=== PATIENT | male | born 1975 | race Caucasian/White ===

== ENCOUNTER → 2017-08-04 11:14 | Outpatient (REF) | payer OTHER, SELFPAY ==
[2017-08-04 13:47] LABS: Alanine Aminotransferase 399 U/L (12-78); Albumin Level 3.9 gm/dL (3.4-5.0); Albumin/Globulin Ratio 1.2 (1.1-1.8); Alkaline Phosphatase 47 U/L (46-116); Anion Gap 11.2 mEq/L (5-15); Aspartate Amino Transferase 133 U/L (15-37); Bilirubin,Total 0.4 mg/dL (0.2-1.0); Blood Urea Nitrogen 12 mg/dL (7-18); Calcium 9.4 mg/dL (8.5-10.1); Carbon Dioxide 29 mmol/L (21.0-32.0); Chloride 104 mmol/L (98-107); Estimated Glomerular Filt Rate 107 ml/min (>60); GFR (African American) 130 ML/MIN (>60); Globulin 3.3 gm/dl (1.3-3.2); Glucose 87 mg/dL (74-106); Potassium 4.2 mmoL/L (3.5-5.1); Sodium 140 mmol/L (136-145); Total Protein,Serum 7.2 gm/dL (6.4-8.2)
[2017-08-04 14:21] LABS: Monoscreen (Rapid) Negative (Negative)
[2017-08-05 08:20] LABS: Hep A Ab, IgM Negative (Negative); Hepatitis B Core Antibody IgM Negative (Negative); Hepatitis B Surface Antigen Negative (Negative)
[2017-08-05 17:00] LABS: EBV Ab VCA, IgM <36.0 U/mL (0.0-35.9)
[2017-08-05 17:01] LABS: Hepatitis C Antibody <0.1 s/co ratio (0.0-0.9)
[2017-08-10 06:15] LABS: CMV PCR Negative (Negative)
== END ==
LOC: LAB.CARL 11:14
PROVIDERS: Visit Provider Internal Medicine Adolescent Medicine
DX: R74.8 Abnormal levels of other serum enzymes (principal)
CPT/HCPCS: 80053; 80074; 86318; 86665

== ENCOUNTER → 2021-03-01 20:01 | Outpatient (CLI) | payer OTHER, SELFPAY | PROVIDERS: Visit Provider Nurse Practitioner Family | DX: U07.1 COVID-19 (principal) | CPT/HCPCS: C9803; U0003; U0005 ==

== ENCOUNTER 2024-06-12 10:57 | Day surgery (SDC) | payer BC, SELFPAY ==
[2024-06-10 16:20] VITALS: BMI 28.2
[2024-06-12 12:23] VITALS: BP 135/87; PULSE 52; RESP 16; TEMP 36.6; O2SAT 99
[2024-06-12] MEDS: LACTATED RINGERS 1000ML 1,000 ML 50 ML IV (12:30)
--- NOTE | 2024-06-12 12:38 | EXP.ANES.CKL ---
[facility] Disclaimer: The information contained in this section may have been updated after the patient was seen, as this information can be updated by other users. Medical History No significant past medical history Surgical History History of cholecystectomy Family History Other No significant family history Social History Smoking Status: Never smoker alcohol intake: current alcohol intake frequency: a few times a week substance use type: denies use current occupational status: employed Travel in the last 8 weeks: None Have you lived/traveled outside US in past 30 days?: No Contact w/someone who lives/traveled outside US past 30 days?: No Exposure to someone with infectious disease in past 14 days?: No Do you have a fever (greater than 100.4 F or 38 C)?: No Have you tested positive for COVID-19: No Exposed to someone with COVID-19 in past 14 days?: No Do you have a sore throat?: No Do you have a cough?: No Do you have any weakness?: No Do you have any diarrhea?: No Are you experiencing any unusual bleeding?: No Do you have any muscle aches/pain?: No Do you have any abdominal pain?: No Are you experiencing loss of taste or smell?: No [facility] Anesthesia Checklist Patient Identification Patient Identification: Arm Band Structural Data Admitted From: Home Planned Operative Procedure/s: Colonoscopy Consent for Planned Operative Procedure(s) Verified: Yes Verified Documents: Surgical Consent and History and Physical NPO Status Verified Time NPO: 05:00 (finished prep) Additional verifications Anesthesia Reactions: No Airway Assessment Mallampati Score:: Class II C-Spine Mobility Assessed: Yes TMJ Mobility Assessed: Yes Dentition: Good Dentition Neurological Assessment Level of Consciousness: Awake, Alert and Appropriate Anesthesia Plan Anesthesia Risk discussed: Yes Anesthesia Plan: Verified ASA Class: II Anesthesia Type: MAC
[2024-06-12 13:07] VITALS: O2SAT 100
--- NOTE | 2024-06-12 13:18 | P.HP_ITS ---
History of Present Illness *Admission Date: 06/12/24 *Reason for visit:: Screening for colon cancer *History of present illness: Mr. Dunn is a 49-year-old gentleman who is here for screening colonoscopy. The examination is deemed medically necessary for screening colonoscopy. The patient has been seen, interviewed and examined prior to the procedure by both myself and the anesthesia provider. [facility] Disclaimer: The information contained in this section may have been updated after the patient was seen, as this information can be updated by other users. Medical History (Updated 06/12/24 @ 13:18 by Momo oJseph II, MD) No significant past medical history Surgical History History of cholecystectomy Family History Other No significant family history Social History Smoking Status: Never smoker alcohol intake: current alcohol intake frequency: a few times a week substance use type: denies use current occupational status: employed Travel in the last 8 weeks: None Have you lived/traveled outside US in past 30 days?: No Contact w/someone who lives/traveled outside US past 30 days?: No Exposure to someone with infectious disease in past 14 days?: No Do you have a fever (greater than 100.4 F or 38 C)?: No Have you tested positive for COVID-19: No Exposed to someone with COVID-19 in past 14 days?: No Do you have a sore throat?: No Do you have a cough?: No Do you have any weakness?: No Do you have any diarrhea?: No Are you experiencing any unusual bleeding?: No Do you have any muscle aches/pain?: No Do you have any abdominal pain?: No Are you experiencing loss of taste or smell?: No Other Medical History Have you received the Pneumonia Vaccine: No Review of Systems Review of Systems Review of systems (narrative): Negative *Cardiovascular Comments: Negative *Gastrointestinal Comments: Negative *Genitourinary Comments: Negative *Musculoskeletal Comments: Negative *Neurologic Comments: Negative Meds Home Medications and Allergies Home Medications ?Medication ?Instructions ?Recorded ?Confirmed ?Type No Known Home Medications 06/12/24 06/12/24 History New Prescriptions to Start Prescriptions: Allergies Allergy/AdvReac Type Severity Reaction Status Date / Time No Known Allergies Allergy Verified 06/10/24 16:19 Exam Data for Last 24 hours Vital signs and Labs for Last 24 Hours: Temp Pulse Resp BP Pulse Ox O2 Del Method O2 Flow Rate 97.9 F 52 L 16 135/87 99 Nasal Cannula 5 06/12/24 12:23 06/12/24 12:23 06/12/24 12:23 06/12/24 12:23 06/12/24 12:23 06/12/24 13:07 06/12/24 13:07 I & O for Last 24 hours: Intake & Output 06/09/24 06/10/24 06/11/24 06/12/24 23:59 23:59 23:59 23:59 Weight 175 lb *Routine HEENT Exam Head: Present normocephalic Eye: Present EOMI and PERRL ENT: Present mucous membranes moist *Routine Neck Exam Neck: Present supple *Routine Respiratory Exam Respiratory: Present CTA bilaterally *Routine Cardiovascular Exam Cardiovascular: Present RRR *Routine Abdominal Exam Abdominal: Present soft and normoactive bowel sounds; Absent tenderness *Routine Rectal Exam Rectal:: deferred *Routine Genitalia Exam Genitalia:: deferred *Routine Extremities Exam Extremities: Absent cyanosis, clubbing or edema *Routine Skin Exam Skin: Present warm; Absent rash *Routine Neurological Exam Neurological: Present alert and oriented X3 Assessment and Plan *Assessment and plan (1) Screening for colon cancer: Status: Acute Category: Medical Code(s): Z12.11 - Encounter for screening for malignant neoplasm of colon Plan A/P: 1. Screening for colon cancer is the preprocedural diagnosis. The patient will be anesthetized/sedated using MAC sedation. The patient has been seen and examined. Cardiac and lung assessment prior to the examination is stable. Proceed with planned screening colonoscopy.
--- NOTE | 2024-06-12 13:19 | HMH.PROCNOTE ---
[facility] Procedure Note Date: 06/12/24 Time: 13:36 Procedure Note:: Colonoscopy Procedure Report: Colonoscopy with cold snare polypectomy Endoscopist: Momo Joseph II, MD Referring physician: Traci Carver MD, [address] [facility] [address], [place] [address] Date of Procedure: June 12, 2024 Equipment: Olympus 190 variable stiffness pediatric colonoscope Sedation: MAC sedation Indication: Mr. Dunn is a 49-year-old gentleman who is here for initial screening colonoscopy. He reports no change in his bowel habits, rectal bleeding or family history of colon cancer. He did have a diagnostic colonoscopy 15 years ago when he had an anal fissure. He was sent for some persistent right lower quadrant abdominal wall pain. The patient did have moderately elevated liver chemistries in the past and consumes about 10 beers daily. Procedure: Prior to the procedure, a history and physical exam was performed, and patient's medications and allergies were reviewed. The risks, benefits and alternatives of the sedation and procedure were discussed with the patient. All questions were answered and informed consent was obtained. The patient was brought to the procedure room. Patient identification and proposed procedure were verified by the physician and the nurse. The patient was placed in a left lateral decubitus position and the scope was passed under direct vision. Throughout the procedure, the patient's blood pressure, pulse, and oxygen saturations were monitored continuously. The colonoscopy was accomplished without difficulty. The patient tolerated the procedure well. Findings: On digital rectal examination there was normal rectal tone. There were no external hemorrhoids. The colonoscope was introduced through the anal canal to the rectum and advanced to the cecum. The ileocecal valve and appendiceal orifice were identified. The scope was advanced a short distance into the ileum which appeared grossly normal. The scope was then withdrawn into the colon. There were 2 polyps (cecum x 1 (5 mm) and ascending x 1 (4 mm)). Both of these were removed via cold snare polypectomy. The remaining cecum, ascending, transverse, descending, sigmoid and rectum were grossly normal. There were a few scattered diverticuli in the sigmoid colon. There were no other mucosal abnormalities identified. Upon retroflexion within the rectum there were grade 2 internal hemorrhoids. The preparation was excellent throughout with [place] Preparation Score of 9. The cecal time was 12 minutes. Impression: 1. Diminutive colonic polyps x 2 2. Mild sigmoid diverticulosis 3. Grade 2 internal hemorrhoids Plan: I will follow-up the polyp histology and recommend repeat surveillance colonoscopy again in 7 years if the polyps are adenomatous. I would encourage psyllium fiber supplementation on a maintenance basis. I will check liver chemistries and FibroSure while here today.
[2024-06-12 13:40] VITALS: BP 102/73; PULSE 74; RESP 19; TEMP 36.4; O2SAT 97
[2024-06-12 13:50] VITALS: BP 110/72; PULSE 53; RESP 19; O2SAT 98
[2024-06-12 14:00] VITALS: BP 95/75; PULSE 55; RESP 19; O2SAT 99
[2024-06-12 14:10] VITALS: BP 120/78; PULSE 58; RESP 19; O2SAT 96
[2024-06-12 14:45] LABS: Chloride 104 mmol/L (98-107)
[2024-06-12 14:46] LABS: Albumin Level 4.9 g/dl (3.5-5.0); Potassium 4.7 mmoL/L (3.5-5.1); Sodium 141 mmol/L (136-145)
[2024-06-12 14:48] LABS: Alanine Aminotransferase 49 U/L (12-78); Anion Gap 10.7 mEq/L (5-15); Aspartate Amino Transferase 49 U/L (17-59); Blood Urea Nitrogen 9 mg/dl (9-20); Carbon Dioxide 31 mmol/L (22.0-30.0); Creatinine Clearance Estimated 128 mL/min (50-200); Estimated Glomerular Filt Rate 104 ml/min (>60); GFR (African American) 125 ML/MIN (>60)
[2024-06-12 14:49] LABS: Albumin/Globulin Ratio 1.7 (1.1-1.8); Alkaline Phosphatase 37 U/L (38-126); Bilirubin,Total 1.3 mg/dl (0.2-1.3); Calcium 9.8 mg/dl (8.4-10.2); Globulin 2.9 g/dL (1.3-3.2); Glucose 109 mg/dl (74-100); Total Protein,Serum 7.8 g/dl (6.3-8.2)
[2024-06-12 15:24] LABS: Ferritin 159 ng/ml (17.9-464)
[2024-06-15 04:11] LABS: ALT (SGPT) P5P 43 IU/L (0-55); AST (SGOT) P5P 48 IU/L (0-40); Alpha 2-Macroglobulins, Qn 284 mg/dL (110-276); Apolipoprotein A-1 220 mg/dL (101-178); Bilirubin, Total 0.9 mg/dL (0.0-1.2); Cholesterol, Total 239 mg/dL (100-199); GGT 49 IU/L (0-65); Glucose 105 mg/dL (70-99); Haptoglobin 124 mg/dL (23-355); Steatosis Score 0.26 (0.00-0.40); Triglycerides 159 mg/dL (0-149)
== END 2024-06-12 14:15 | disposition home or self-care (01) ==
PROVIDERS: PCP Family Medicine; Visit Provider Internal Medicine Gastroenterology
PROC: 0DJD8ZZ Inspection of Lower Intestinal Tract, Via Natural or Artificial Opening Endoscopic (ICD-10-PCS; CPT 45378; principal; 2024-06-12 12:30)
DX: D12.0 Benign neoplasm of cecum (principal); K63.5 Polyp of colon; K57.30 Diverticulosis of large intestine without perforation or abscess without bleeding; K64.1 Second degree hemorrhoids; Z12.11 Encounter for screening for malignant neoplasm of colon
CPT/HCPCS: 45385; 36415; 80053; 82172; 82247; 82465; 82728; 82947; 82977; 83010; 83883; 84450; 84460; 84478; J7120

== ENCOUNTER 2024-07-01 07:58 | Outpatient (CLI) | payer BC, SELFPAY ==
--- NOTE | 2024-07-01 08:00 | MR_ITS ---
FINAL REPORT CLINICAL HISTORY: hernia eval, near umbilicus, marked with a marker FINDINGS: Multiplanar MR imaging of the abdomen was performed without and with contrast. Images of the liver reveal no evidence of mass. There is no evidence of biliary ductal dilatation. Gallbladder is not visualized and likely surgically absent. There are benign-appearing cysts in the anterior right kidney measuring up to 1.3 cm. Moderate stool is seen throughout the colon. There is a skin marker overlying the right anterior pelvic wall. No underlying hernia is seen. There is no subcutaneous mass or fluid collection. No abnormal contrast enhancement is seen on the postcontrast images. IMPRESSION: Moderate stool. No underlying hernia, subcutaneous mass or fluid collection seen. Reviewed, Interpreted and Dictated by Jay Gould MD Transcribed by Tiera Vega Authenticated and . [facility]
[2024-07-01] MEDS: SODIUM CHLORIDE 0.9% 10ML SYR (RAD ONLY) 10 ML IV (09:05)
[2024-07-01] MEDS: 0.9 % SODIUM CHLORIDE 50 ML VIAL IV (09:05)
[2024-07-01] MEDS: GADOTERIDOL INJ 20ML SYRINGE 16 ML IV (09:05)
== END 2024-07-01 23:59 | disposition home or self-care (01) ==
LOC: RAD 07:58
PROVIDERS: PCP Family Medicine; Visit Provider Surgery
DX: R10.9 Unspecified abdominal pain (principal)
CPT/HCPCS: 74183; A9576

== ENCOUNTER 2024-07-17 12:32 | Outpatient (CLI) | payer BC, SELFPAY ==
--- NOTE | 2024-07-17 12:57 | ECG_ITS ---
APPROVED REPORT Exam: Resting ECG HR:57 bpm ECG Measurements Heart Rate 57 AXES WI 124 P 30 QRSd 86 QRS 53 QT 384 T 45 QTc 379 Conclusion SINUS BRADYCARDIA BORDERLINE ECG UNCONFIRMED REPORT Electronically signed by : Trent Sousa MD 07/18/2024 07:30:14
== END 2024-07-17 23:59 | disposition home or self-care (01) ==
LOC: PREOP 12:33
PROVIDERS: PCP Family Medicine; Visit Provider Surgery
DX: R94.31 Abnormal electrocardiogram [ECG] [EKG]; Z01.810 Encounter for preprocedural cardiovascular examination; R00.1 Bradycardia, unspecified
CPT/HCPCS: 93005

== ENCOUNTER 2024-07-22 07:53 | Day surgery (SDC) | payer BC, SELFPAY ==
[2024-07-17 13:26] LABS: MANUAL DIFFERENTIAL MANUAL DIFFERENTIAL (MANUAL DIFF)
[2024-07-17 13:28] LABS: Basophils % 0.6 % (0.1-2.0); Eosinophils # 0.1 Kmm3 (0.0-0.4); Eosinophils % 2.5 % (0.1-12.0); Hematocrit 43.8 % (42.0-52.0); Lymphocytes # 1.6 K/mm3 (0.7-4.5); Lymphocytes % 29.7 % (10-50); Mean Corpuscular HGB Conc 34.2 g/dL (31.8-35.4); Mean Corpuscular Hemoglobin 32.3 pg (27.0-31.2); Mean Corpuscular Volume 94.4 fl (80-94); Mean Platelet Volume 10.5 fl (7.4-10.4); Monocytes # 0.5 K/mm3 (0.1-1.0); Monocytes % 9.1 % (1.7-9.3); Neutrophils # 3.1 K/mm3 (1.8-7.8); Neutrophils % 57.7 % (37.0-80.0); Platelet Count 194 K/mm3 (142-424); Red Blood Count 4.64 M/mm3 (4.60-6.20); Red Cell Distribution Width 12.4 % (11.5-17.5); White Blood Count 5.3 K/mm3 (4.8-10.8)
[2024-07-17 13:38] VITALS: BMI 28.2
[2024-07-17 13:42] LABS: Albumin Level 4.8 g/dl (3.5-5.0); Chloride 109 mmol/L (98-107); Sodium 144 mmol/L (136-145)
[2024-07-17 13:43] LABS: Potassium 4.4 mmoL/L (3.5-5.1)
[2024-07-17 13:45] LABS: Alanine Aminotransferase 38 U/L (12-78); Albumin/Globulin Ratio 1.7 (1.1-1.8); Alkaline Phosphatase 34 U/L (38-126); Anion Gap 10.4 mEq/L (5-15); Aspartate Amino Transferase 42 U/L (17-59); Bilirubin,Total 0.6 mg/dl (0.2-1.3); Blood Urea Nitrogen 9 mg/dl (9-20); Carbon Dioxide 29 mmol/L (22.0-30.0); Creatinine Clearance Estimated 171 mL/min (50-200); Estimated Glomerular Filt Rate 144 ml/min (>60); GFR (African American) 175 ML/MIN (>60); Globulin 2.9 g/dL (1.3-3.2); Total Protein,Serum 7.7 g/dl (6.3-8.2)
[2024-07-17 13:46] LABS: Calcium 9.6 mg/dl (8.4-10.2); Glucose 100 mg/dl (74-100)
[2024-07-17 18:23] LABS: Lymphocytes % 35 % (10-50); Neutrophils % 52 % (42-76); Total Cells Counted 100
[2024-07-17 18:24] LABS: Eosinophils % 6 % (0-3); Monocytes % 7 % (2-9)
[2024-07-17 18:25] LABS: Platelet Estimate Normal; RBC Morphology Normal
[2024-07-22] VITALS (9 sets, daily range): BP systolic 104–155; BP diastolic 63–92; PULSE 59–79; RESP 16–26; TEMP 36.1–36.4; O2SAT 94–98
--- NOTE | 2024-07-22 08:58 | P.PNANES_ITS ---
[facility] Disclaimer: The information contained in this section may have been updated after the patient was seen, as this information can be updated by other users. Medical History No significant past medical history Surgical History H/O vasectomy H/O colonoscopy History of cholecystectomy Family History Other No significant family history Social History Smoking Status: Never smoker alcohol intake: current alcohol intake frequency: a few times a week substance use type: denies use current occupational status: employed Travel in the last 8 weeks?: None Have you lived/traveled outside US in past 30 days?: No Contact w/someone who lives/traveled outside US past 30 days?: No Exposure to someone with infectious disease in past 14 days?: No Do you have a fever (greater than 100.4 F or 38 C)?: No Have you tested positive for COVID-19?: No Exposed to someone with COVID-19 in past 14 days?: No Do you have a sore throat?: No Do you have a cough?: No Do you have any weakness?: No Do you have any diarrhea?: No Are you experiencing any unusual bleeding?: No Do you have any muscle aches/pain?: No Do you have any abdominal pain?: No Are you experiencing loss of taste or smell?: No [facility] Anesthesia Checklist Patient Identification Patient Identification: Arm Band Structural Data Admitted From: Home Planned Operative Procedure/s: Laparoscopic Periumbilical Hernia Repair Consent for Planned Operative Procedure(s) Verified: Yes Verified Documents: Surgical Consent and History and Physical NPO Status Verified Time NPO: 00:00 Additional verifications Anesthesia Reactions: No Hx Blood Transfusions: No Blood Transfusion Reaction: No Airway Assessment Mallampati Score:: Class II C-Spine Mobility Assessed: Yes TMJ Mobility Assessed: Yes Dentition: Good Dentition Neurological Assessment Level of Consciousness: Awake, Alert and Appropriate Anesthesia Plan Anesthesia Risk discussed: Yes Anesthesia Plan: Verified ASA Class: II Anesthesia Type: General
[2024-07-22] MEDS: LIDOCAINE 1% 20ML MDV 20 ML (09:29)
[2024-07-22] MEDS: ROPIVACAINE 0.5% 30ML VIAL 150 MG (09:29)
[2024-07-22] MEDS: CEFAZOLIN SODIUM 2 GM in 0.9 % SODIUM CHLORIDE 100 ML IV (09:29)
--- NOTE | 2024-07-22 10:19 | P.OP_ITS ---
Date of procedure: 07/22/24 Pre-op Diagnosis:: Periumbilical hernia Post-op Diagnosis:: Tiny umbilical hernia Procedure performed:: Laparoscopic directed repair of tiny umbilical hernia with placement of small sized Bard Ventralex mesh Surgeon:: Demarcus Messina MD Anesthesia: WILLIAN Estimated blood loss (mL): 10 Clinical Note:: Patient presents for possible hernia repair. He is a 49-year-old male who works at [employer] [place] referred by Traci Carver for umbilical and inguinal hernia and initially seen in the office on 05/28/24. He is somewhat of a limited historian. He describes some pain several inches to the right of his umbilical area. He states that this is actually been ongoing for several months at this time beginning in November 2023. Denies any inciting event. He had undergone CT scan at [facility] on 04/19/2024. By report this reveals colonic diverticulosis. Very small fat-containing periumbilical hernia and small right inguinal hernia. He had undergone laparoscopic cholecyst[place] [address] Carroll. No other abdominal surgeries. He did undergo colonoscopy with Dr. Joseph on 06/12/2024 which revealed some mild sigmoid diverticulosis with a couple of diminutive polyps. Cecal polyp revealed sessile serrated adenoma. Patient states that Dr. Joseph felt that some of his right-sided abdominal pain may be secondary to his liver. He has had blood work to assess his liver. I was unable to detect any hernia on examination. He has some point tenderness to the right of the umbilicus. I had him undergo an MRI and this revealed no definite abdominal wall hernia. His CT report revealed periumbilical hernia . I discussed the options with the patient. This has been ongoing for 6 months at this point. I discussed the possibility of diagnostic laparoscopy to assess for any occult hernia defect and proceed with laparoscopic directed repair if defect is present. He does wish to pursue this. . Operative findings:: Diminutive tiny umbilical hernia Pigmented skin lesion within the umbilicus No abdominal pathology of the abdominal wall noted at the site of tenderness Operative note:: Patient was seen in the preoperative area and the site of his tenderness was marked with a permanent skin marker. This was several centimeters to the right and slightly inferior to the umbilicus. He also had some minor tenderness within the umbilical area. No hernia was palpated. He was taken to the operating room. He was positioned in supine position. General anesthesia was induced. Abdomen was prepped and draped in the standard surgical fashion. Through left subcostal incision optical trocar was inserted carefully under visualization into the peritoneal cavity. CO2 pneumoperitoneum was achieved. Laparoscopic surveillance was carried out. Initially there was noted to be no definite evidence of any hernia. There is some minor peritoneal scar tissue at his umbilicus from previous laparoscopic cholecystectomy. Additional 5 mm troca r was inserted in the left lower abdomen. Surveillance was carried out. At the site of his point tenderness the abdominal wall peritoneum appeared without any pathology whatsoever. Umbilicus was inspected. Peritoneum was incised. With dissection there was noted to be tiny diminutive hernia at the umbilical area. This measured several millimeters. Underlying tissues were dissected free and r educed. This was extracted laparoscopically and sent as hernia contents. With inspection of the umbilicus there was a somewhat irregular dark pigmented lesion within the umbilicus. Since the hernia was within the umbilicus plan was made for excision of this somewhat atypical appearing skin lesion with incorporation into the incision. Intraumbilical elliptical incision was made and the skin les ion was sent off as pigmented umbilical lesion. Dissection was carried down through subcutaneous tissues. Ultimately tiny hernia defect was encountered within some scar tissue likely from previous laparoscopy. This was all dissected free down to the fascial defect. Fascial defect measured several millimeters. However, I felt the best plan of action may be repair with small Ventralex. Small sized Bard Ventralex mesh was inserted through the defect and elevated. Laparoscopy was used to show good positioning with coverage of the tiny defect. The details of the mesh were sutured superiorly and inferiorly with 2-0 Prolene suture. Prolene tails were then cut flush with the fascia. Laparoscopy was used once again to show good positioning. At the site of the point tenderness local anesthetic was infiltrated under laparoscopic visualization. Trocars were then removed as CO2 pneumoperitoneum was evacuated. Additional local anesthetic was infiltrated in the trocar sites. Subdermal t issues at the umbilical site closed with interrupted 2-0 Vicryl. Skin incision was closed with 4-0 Monocryl in a subcuticular fashion. Steri-Strips and dressings were applied. . Condition: stable Disposition: PACU Complications:: None immediately apparent
[2024-07-22] MEDS: HYDROMORPHONE 2MG/ML SYRINGE 0.5 MG IV ×4 (10:25→10:40)
--- NOTE | 2024-07-22 10:30 | P.PNANES_ITS ---
[facility] Anesthesia Record Part I Anesthesia Record I Intake, IV Amount: 650 Hydration: Adequate Estimated blood loss (mL): 15 Urine output (mL): 0 Blood Products used (#): none Blood Pressure: 155/64 SaO2: 94 Pulse Rate: 67 Airway Patency: Patent Respiratory Rate: 26 Temperature: 97.5 F Patient is:: Drowsy and Stable Stable to PACU at:: 10:24
[2024-07-22] MEDS: MORPHINE 2MG/ML SYRINGE 2 MG IV (10:43)
--- NOTE | 2024-07-23 08:10 | P.PNANES_ITS ---
[facility] Anesthesia Record Part II Anesthesia Record Part II Discharge Time: 11:25 Destination: Surgical Day Care (OP Surgery) PACU nurse assessment reviewed?: Yes Patient Condition:: Good Anesthesia Complications:: None Swallowing reflex intact?: Yes Airway Patency: Patent Cyanosis?: No Blood Pressure: 132/84 SaO2: 98 Respiratory Rate: 16 Pulse Rate: 73 Temperature: 97.5 F Mental Status: Alert & Oriented Pain level:: 3 Nausea and/or vomitting:: None Intake, IV Amount: 0 Hydration: Adequate
[2024-07-23 08:12] VITALS: BP 132/84; PULSE 73; RESP 16; TEMP 36.4; O2SAT 98
== END 2024-07-22 11:25 | disposition home or self-care (01) ==
PROVIDERS: PCP Family Medicine; Visit Provider Surgery
PROC: 0WQF4ZZ Repair Abdominal Wall, Percutaneous Endoscopic Approach (ICD-10-PCS; CPT 49591; principal; 2024-07-22 09:45)
DX: K42.9 Umbilical hernia without obstruction or gangrene (principal); L81.4 Other melanin hyperpigmentation; K57.30 Diverticulosis of large intestine without perforation or abscess without bleeding; E66.3 Overweight; Z90.49 Acquired absence of other specified parts of digestive tract; Z86.0101 Personal history of adenomatous and serrated colon polyps; Z98.52 Vasectomy status; Z68.28 Body mass index [BMI] 28.0-28.9, adult
CPT/HCPCS: 49591; 80053; 85007; 85014; 85018; 85048; 85049; 96374; C1781; J0690; J1100; J1171; J2003; J2250; J2270; J2405; J2704; J2795; J3010